=== PATIENT | male | born 1985 | race African-American/Black ===

== ENCOUNTER 2023-04-27 22:28 | Emergency (ER) | payer OTHER ==
[2023-04-27] MEDS ORDERED: Ketorolac Tromethamine 30 MG (1 mL) VIAL ONE (22:46)
== END 2023-04-27 23:33 | disposition home or self-care (01) ==
LOC: ERS 22:28
DX: M54.50 Low back pain, unspecified (principal); M54.6 Pain in thoracic spine; F17.210 Nicotine dependence, cigarettes, uncomplicated; V59.40XA Driver of pick-up truck or van injured in collision with unspecified motor vehicles in traffic accident, initial encounter
CPT/HCPCS: 72072; 96372; J1885